=== PATIENT | male | born 1955 | race Two or more races ===

== ENCOUNTER 2023-10-10 05:16 | Day surgery (SDC) | payer OTHER ==
[2023-10-10] MEDS ORDERED: CEFTRIAXONE SODIUM 2,000 MG VIAL ONE (07:20)
[2023-10-10] MEDS ORDERED: METRONIDAZOLE/SODIUM CHLORIDE 500 MG/100 ML PIGGYBACK IV ONE (07:20)
[2023-10-10] MEDS ORDERED: POVIDONE-IODINE 118 ML BOTT TOP ONE (08:30)
[2023-10-10] MEDS ORDERED: LIDOCAINE HCL/EPINEPHRINE 1% 50ML VIAL IJ ONE (08:30)
[2023-10-10] MEDS ORDERED: HEMOSTATIC MATRIX 1 KIT KIT TOP ONE (08:34)
[2023-10-10] MEDS ORDERED: DIBUCAINE 30 GM TUBE ONE (08:34)
[2023-10-10] MEDS ORDERED: TRAM1TAB98 PO (09:01)
[2023-10-10] MEDS ORDERED: NEURONTIN300 MG PO (09:01)
[2023-10-13] MEDS ORDERED: HEMOSTATIC MATRIX 1 KIT KIT TOP ONE ×2 (14:00→14:30)
[2023-10-13] MEDS ORDERED: DIBUCAINE 30 GM TUBE RECTAL ONE ×2 (14:00→14:30)
[2023-10-13] MEDS ORDERED: METRONIDAZOLE/SODIUM CHLORIDE 500 MG/100 ML PIGGYBACK IV ONE ×2 (14:00→14:30)
[2023-10-13] MEDS ORDERED: CEFTRIAXONE SODIUM 2,000 MG VIAL IV ONE ×2 (14:00→14:30)
[2023-10-13] MEDS ORDERED: POVIDONE-IODINE 118 ML BOTT TOP ONE ×2 (14:00→14:15)
[2023-10-13] MEDS ORDERED: LIDOCAINE HCL/EPINEPHRINE 1% 50ML VIAL IJ ONE ×2 (14:00→14:30)
[2023-10-13] MEDS ORDERED: HYDROGEN PEROXIDE 118 ML SOLUTION TOP ONE (14:30)
== END 2023-10-10 13:40 | disposition home or self-care (01) ==
LOC: CIR.AMB 05:16
PROVIDERS: ATTEND Surgery
DX: D12.8 Benign neoplasm of rectum (principal); K62.89 Other specified diseases of anus and rectum; K64.8 Other hemorrhoids